=== PATIENT | female | born 1995 | race Caucasian/White ===

== ENCOUNTER 2018-03-02 18:15 | Inpatient (IN) | END 2018-03-05 22:35 | disposition home or self-care (01) | DRG 781 ==

== ENCOUNTER 2018-03-08 16:35 | Outpatient (CLI) | END 2018-03-08 21:07 | disposition home or self-care (01) ==

== ENCOUNTER 2018-04-28 18:51 | Inpatient (IN) | END 2018-05-01 13:30 | disposition home or self-care (01) | DRG 775 ==